=== PATIENT | female | born 1995 | race Two or more races ===

== ENCOUNTER 2016-08-16 12:57 | Emergency (ER) | payer MEDICAID ==
[2016-08-16] MEDS ORDERED: ONDANSETRON 4 MG TAB.RAPDIS PO ONE (13:25)
--- NOTE | 2016-08-16 13:25 | ER Document Report ---
ED General - General Chief Complaint: Possible Overdose Stated Complaint: POSSIBLE OVERDOSE Time Seen by Provider: 08/16/16 13:20 Mode of Arrival: Ambulatory Information source: Patient Notes: 20-year-old female presents with complaints of nausea vomiting chest pain after ingesting Tylenol, Toradol and muscle relaxer. Patient notes she took 3 trials one muscle relaxer and 15 500 mg Tylenol tablets at 4 AM. Patient admits that her tooth hurts and that is why she did this denies any thoughts of wanting to hurt herself, father is in the room denies a history of depression but states that her and her may have had an argument prior to this episode TRAVEL OUTSIDE OF THE [place] IN LAST 30 DAYS: No - HPI Onset: This morning Onset/Duration: Sudden Quality of pain: Achy Severity: Mild Pain Level: 1 Associated symptoms: Nausea, Vomiting Exacerbated by: Denies Relieved by: Denies Similar symptoms previously: No Recently seen / treated by doctor: No - Related Data Allergies/Adverse Reactions: No Known Allergies Allergy (Verified 09/06/14 16:25) Past Medical History - Social History Smoking Status: Never Smoker Cigarette use (# per day): No Chew tobacco use (# tins/day): No Smoking Education Provided: No Frequency of alcohol use: None Drug Abuse: None Family History: Reviewed & Not Pertinent Patient has suicidal ideation: No Patient has homicidal ideation: No Renal/ Medical History: Denies: Hx Peritoneal Dialysis Past Surgical History: Reports: Hx Section - 4 - Immunizations Immunizations up to date: Yes Hx Diphtheria, Pertussis, Tetanus Vaccination: Yes Review of Systems - Review of Systems Notes: REVIEW OF SYSTEMS: CONSTITUTIONAL : Denies fever, chills, or sweats. Denies recent illness. EENT: Denies eye, ear, throat, or mouth pain or symptoms. Denies nasal or sinus congestion or discharge. Denies throat, tongue, or mouth swelling or difficulty swallowing. CARDIOVASCULAR: Chest pain RESPIRATORY: Denies cough, cold, or chest congestion. Denies shortness of breath, difficulty breathing, or wheezing. GASTROINTESTINAL: Nausea GENITOURINARY: Denies difficulty urinating, painful urination, burning, frequency, blood in urine, or discharge. FEMALE GENITOURINARY: Denies vaginal bleeding, heavy or abnormal periods, irregular periods. Denies vaginal discharge or odor. MUSCULOSKELETAL: Denies back or neck pain or stiffness. Denies joint pain or swelling. SKIN: Denies rash, lesions or sores. HEMATOLOGIC : Denies easy bruising or bleeding. LYMPHATIC: Denies swollen, enlarged glands. NEUROLOGICAL: Denies confusion or altered mental status. Denies passing out or loss of consciousness. Denies dizziness or lightheadedness. Denies headache. Denies weakness or paralysis or loss of use of either side. Denies problems with gait or speech. Denies sensory loss, numbness, or tingling. Denies seizures. PSYCHIATRIC: Denies anxiety or stress. Denies depression, suicidal ideation, or homicidal ideation. ALL OTHER SYSTEMS REVIEWED AND NEGATIVE. PHYSICAL EXAMINATION: GENERAL: Well-appearing, well-nourished and in no acute distress. Is actively vomiting HEAD: Atraumatic, normocephalic. EYES: Pupils equal round and reactive to light, extraocular movements intact, conjunctiva are normal. ENT: Nares patent, oropharynx clear without exudates. Moist mucous membranes. NECK: Normal range of motion, supple without lymphadenopathy LUNGS: Breath sounds clear to auscultation bilaterally and equal. No wheezes rales or rhonchi. HEART: Regular rate and rhythm without murmurs ABDOMEN: Soft, nontender, nondistended abdomen. No guarding, no rebound. No masses appreciated. Female : deferred Musculoskeletal: Normal range of motion, no pitting or edema. No cyanosis. NEUROLOGICAL: Cranial nerves grossly intact. Normal speech, normal gait. Normal sensory, motor exams PSYCH: Normal mood, normal affect. SKIN: Warm, Dry, normal turgor, no rashes or lesions noted. Dictation was performed using [employer] voice recognition software Physical Exam - Vital signs Vitals: Temp Pulse Resp BP Pulse Ox 98.0 F 87 24 H 119/103 H 100 08/16/16 13:01 08/16/16 13:01 08/16/16 13:01 08/16/16 13:01 08/16/16 13:01 Course - Re-evaluation Re-evalutation: 08/16/16 13:28 At this point patient has ingested tylenol 9 hours ago, labs pending before clearance 08/16/16 14:28 Patient's Tylenol level is 28, she falls under the nomogram for treatment, therefore I will treat symptomatically at this time 08/16/16 16:00 Patient was evaluated by mental health, they spoke with father and and there is no signs of suicidal ideation appears this was all secondary to pain control intolerance, I will send him home with pain medication and antibiotics for the dental pain no abscess was noted After performing a Medical Screening Examination, I estimate there is LOW risk for any life threatening mental health issues. At this time the patient looks extremely well and has not attempted severe self harm. I have reevaluated this patient multiple times and no significant life threatening changes are noted. The patient and I have discussed the diagnosis and risks, and we agree with discharging home with close follow-up with the understanding that symptoms and presentations can change. We also discussed returning to the Emergency Department immediately if new or worsening symptoms occur. We have discussed the symptoms which are most concerning (hallucinations, thoughts or actions of self harm or harm to others) that necessitate immediate return. - Vital Signs Vital signs: Temp Pulse Resp BP Pulse Ox 98.0 F 87 24 H 113/72 100 08/16/16 13:01 08/16/16 13:01 08/16/16 13:01 08/16/16 15:16 08/16/16 13:01 - Laboratory Result Diagrams: 08/16/16 13:54 08/16/16 13:54 Laboratory results interpreted by me: 08/16/16 08/16/16 08/16/16 13:34 13:54 13:54 MCV 78 L MCH 24.9 L RDW 14.9 H Seg Neutrophils % 79.8 H Monocytes % 2.0 L Carbon Dioxide 21 L Glucose 123 H Total Protein 9.0 H Albumin 5.1 H Urine Protein 30 H Urine Ketones 80 H Ur Leukocyte Esterase SMALL H Urine Ascorbic Acid 40 H Salicylates < 1.0 L Discharge - Discharge Clinical Impression: Pain, dental Overdose by acetaminophen Qualifiers: Encounter type: initial encounter Injury intent: accidental or unintentional Qualified Code(s): T39.1X1A - Poisoning by 4-Aminophenol derivatives, accidental (unintentional), initial encounter Condition: Fair Disposition: HOME, SELF-CARE Instructions: Toothache ([facility]) Additional Instructions: Overdose You have taken more medication than you should have. After your evaluation and care, it is felt that your overdose is not likely to be harmful or of any significant consequences to you and you are being discharged. In the future, you should be careful not to take more medications than what is prescribed for you. Although your overdose does not seem to be of any danger to you at this time, if you develop any unusual or unexpected symptoms after your discharge, you should return to the Emergency Department immediately for re-evaluation. You should followup with a Primary Care Provider within 3-5 days. Prescriptions: Oxycodone HCl [Oxycontin Ir 5 Mg Tablet] 1 - 2 mg PO Q4H PRN #15 tablet PRN Reason: For Pain Penicillin V Potassium [Penicillin Vk 500 mg Tablet] 500 mg PO Q6 #40 tablet Referrals: [facility] [Provider Group] - Follow up in 3-5 days
[2016-08-16] MEDS ORDERED: ONDANSETRON 4 MG TAB.RAPDIS ONE (13:29)
[2016-08-16 14:03] LABS: APPEARANCE,URINE SLIGHTLY-CLOUDY; BILIRUBIN,URINE NEGATIVE (NEGATIVE); GLUCOSE, URINE NEGATIVE (NEGATIVE); KETONES,URINE 80 mg/dL (NEGATIVE); LEUKOCYTE ESTERASE,URINE SMALL (NEGATIVE); NITRITE,URINE NEGATIVE (NEGATIVE); PROTEIN,URINE 30 mg/dL (NEGATIVE); URINE SPECIFIC GRAVITY > 1.060; UROBILINOGEN,URINE NEGATIVE mg/dL (<2.0)
[2016-08-16 14:06] LABS: ABSOLUTE LYMPHOCYTES (AUTO) 1.6 10^3/uL (0.5-4.7); ABSOLUTE MONOCYTES (AUTO) 0.2 10^3/uL (0.1-1.4); ABSOLUTE NEUT (AUTO) 7.2 10^3/uL (1.7-8.2); BASOPHILS % (AUTO) 0.5 % (0-2); EOSINOPHILS % (AUTO) 0.1 % (0-6); HEMATOCRIT 39.2 % (36.0-47.0); HEMOGLOBIN 12.5 g/dL (12.0-15.5); HGB HCT DIFFERENCE -1.7; LYMPHOCYTES % (AUTO) 17.6 % (13-45); MEAN CORPUSCULAR HEMOGLOBIN 24.9 pg (27.0-33.4); MEAN CORPUSCULAR VOLUME 78 fl (80-97); RED BLOOD COUNT 5.04 10^6/uL (3.72-5.28); RED CELL DISTRIBUTION WIDTH 14.9 % (11.5-14.0); SEGMENTED NEUTROPHILS % (AUTO) 79.8 % (42-78)
[2016-08-16] MEDS ORDERED: NORMAL SALINE 1000 ML 1,000 ML IV ONE (14:07)
[2016-08-16 14:15] LABS: URINE BARBITURATES SCREEN NEGATIVE; URINE METHADONE SCREEN NEGATIVE; URINE OPIATES LOW NEGATIVE; URINE PHENCYCLIDINE SCREEN NEGATIVE
[2016-08-16 14:22] LABS: ALANINE AMINOTRANSFERASE 27 U/L (9-52); ALBUMIN 5.1 g/dL (3.5-5.0); ALKALINE PHOSPHATASE 96 U/L (38-126); ANION GAP 18 (5-19); ASPARTATE AMINO TRANSFERASE 21 U/L (14-36); BILIRUBIN,DIRECT 0.3 mg/dL (0.0-0.4); BILIRUBIN,TOTAL 0.6 mg/dL (0.2-1.3); BLOOD UREA NITROGEN 16 mg/dL (7-20); CALCIUM 9.6 mg/dL (8.4-10.2); CARBON DIOXIDE 21 mmol/L (22-30); CHLORIDE 104 mmol/L (98-107); CREATININE RESULT 0.67 mg/dL (0.52-1.25); GLUCOSE 123 mg/dL (75-110); POTASSIUM 4.1 mmol/L (3.6-5.0); SODIUM 142.9 mmol/L (137-145)
[2016-08-16 14:23] LABS: ALCOHOL < 10 mg/dL (NONE DETECTED)
--- NOTE | 2016-08-16 15:50 | ER Document Report ---
ED Psych Disorder / Suicide - General Chief Complaint: Possible Overdose Stated Complaint: POSSIBLE OVERDOSE Time Seen by Provider: 08/16/16 13:20 Mode of Arrival: Ambulatory Information source: Patient, Parent, Relative - TRAVEL OUTSIDE OF THE [place] IN LAST 30 DAYS: No - HPI Patient complains to provider of: Overdose Onset: This morning Suicide Risk Factors: Other - pain Overdose of: Acetominophen Strength: 250MG Amount: unknown Normal mood: Yes Associated symptoms: Normal affect, Normal mood Similar symptoms previously: Yes Recently seen / treated by doctor: Yes Notes: Patient is a 20 year old female who presented to the ED today via father for an intentional OD. Patient reported she has had tooth pain (molar) for awhile now. She stated she tried family remedies of using toothpaste, peroxide, liquor to swish in mouth. She noted she also tried the gum numbing stuff. She reported the only thing that has ever worked for her were shots given in another ED. She acknowledged she was in pain, crying, and took some pills to aid with the pain. She noted she didn't count and took to much. She stated she first took a muscle relaxer which did not work so she then took a Toradol. When the Toradol didn't work she also took Tylenol. She stated the Tylenol was 250MG and she normally would take Ibuprofen 800MG so didn't think anything of taking multiple Tylenol. She was adamant she took the pills to address tooth pain and not to hurt.harm/ kill self. She denied previous SI. She identified she has 4 daughters to live for. She had informed the nurse she needed to get home to relief mother from the children. She stated she was also concerned because she had to work this evening. She denied previous MH hospitalization or outpatient MH services (to include medications). Patient was alert and oriented. Mood was euthymic with congruent affect. She denied SI/HI, as well as history. She did not appear to be responding to internal stimuli AEB fair eye contact, answering questions appropriately when addressed, and carrying on dialogue conversation. Thought processes were organized and linear. Conversational speech was WNL for rate, tone and prosody. Intellectual abilities are estimated to be average. Insight, judgment and impulse control are fair AEB her understanding that medications need to be taken as described in directions or as directed by physician. Patient's father was at bedside. He confirmed she has had tooth pain. He denied patient doing anything in the past to harm/hurt/kill self. He stated he lives close and would be providing transportation for patient today. Patient's father had patient's on the phone. This clinician spoke to . he was more concerned about her current wellbeing as a result of taking to much medication to deal with tooth pain. He stated since they have been together patient has not done anything to harm/hurt/kill self. Diagnosis: 300.9 (F99) Unspecified Mental Disorder Accidental Overdose Tooth Pain Impression/Plan: Recommendation to discharge patient home with father. She does not meet [place] IVC criteria. She denied SI/HI and there was no observed psychosis. Patient was worried about getting home to her 4 daughters so patient' s mother could get to work, as well as patient having to work this evening ( future thinking). Both father and confirmed ongoing tooth pain and issues, as well as denied previous SI. Father stated he would be providing transportation for patient today and he would have control over all medications (O-T-C as well). Provided patient with resource information for [facility] in [place], [place], as well as [facility]. Also provided the outpatient resource list for services. Consulted with Dr. Higginbotham regarding the management and care of patient. ED physician in agreement with recommendations. - Related Data Allergies/Adverse Reactions: No Known Allergies Allergy (Verified 09/06/14 16:25) Past Medical History - General Information source: Patient - Social History Smoking Status: Never Smoker Cigarette use (# per day): No Chew tobacco use (# tins/day): No Frequency of alcohol use: None Drug Abuse: None Family History: Reviewed & Not Pertinent Patient has suicidal ideation: No Patient has homicidal ideation: No Renal/ Medical History: Denies: Hx Peritoneal Dialysis Past Surgical History: Reports: Hx Section - 4 - Immunizations Immunizations up to date: Yes Hx Diphtheria, Pertussis, Tetanus Vaccination: Yes Physical Exam - Vital signs Vitals: Temp Pulse Resp BP Pulse Ox 98.0 F 87 24 H 119/103 H 100 08/16/16 13:01 08/16/16 13:01 08/16/16 13:01 08/16/16 13:01 08/16/16 13:01 Course - Vital Signs Vital signs: Temp Pulse Resp BP Pulse Ox 98.0 F 73 18 116/80 100 08/16/16 16:15 08/16/16 16:15 08/16/16 16:15 08/16/16 16:15 08/16/16 16:15 - Laboratory Result Diagrams: 08/16/16 13:54 08/16/16 13:54 Laboratory results interpreted by me: 08/16/16 08/16/16 08/16/16 13:34 13:54 13:54 MCV 78 L MCH 24.9 L RDW 14.9 H Seg Neutrophils % 79.8 H Monocytes % 2.0 L Carbon Dioxide 21 L Glucose 123 H Total Protein 9.0 H Albumin 5.1 H Urine Protein 30 H Urine Ketones 80 H Ur Leukocyte Esterase SMALL H Urine Ascorbic Acid 40 H Salicylates < 1.0 L Discharge - Discharge Clinical Impression: Pain, dental Overdose by acetaminophen Qualifiers: Encounter type: initial encounter Injury intent: accidental or unintentional Qualified Code(s): T39.1X1A - Poisoning by 4-Aminophenol derivatives, accidental (unintentional), initial encounter Condition: Fair Disposition: HOME, SELF-CARE Instructions: Toothache ([facility]) Additional Instructions: Overdose You have taken more medication than you should have. After your evaluation and care, it is felt that your overdose is not likely to be harmful or of any significant consequences to you and you are being discharged. In the future, you should be careful not to take more medications than what is prescribed for you. Although your overdose does not seem to be of any danger to you at this time, if you develop any unusual or unexpected symptoms after your discharge, you should return to the Emergency Department immediately for re-evaluation. You should followup with a Primary Care Provider within 3-5 days. Prescriptions: Oxycodone HCl [Oxycontin Ir 5 Mg Tablet] 1 - 2 mg PO Q4H PRN #15 tablet PRN Reason: For Pain Penicillin V Potassium [Penicillin Vk 500 mg Tablet] 500 mg PO Q6 #40 tablet Forms: Return to Work Referrals: [facility] [place] [Provider Group] - Follow up in 3-5 days
[2016-08-16 16:16] VITALS: BP 116/80
--- NOTE | 2016-08-16 21:09 | EKG REPORT ---
SEVERITY:- NORMAL ECG - SINUS RHYTHM : Confirmed by: Zane Sharpe MD 16-Aug-2016 21:08:43
== END 2016-08-16 16:18 | disposition home or self-care (01) ==
LOC: ER 12:57
DX: T39.1X1A Poisoning by 4-Aminophenol derivatives, accidental (unintentional), initial encounter (principal); K08.89 Other specified disorders of teeth and supporting structures; F99 Mental disorder, not otherwise specified
CPT/HCPCS: 93005; 99284; 36415; 80307 ×4; 84703; 85025; 80053; 81001; 93010; S0119; J7030

== ENCOUNTER 2016-09-21 15:14 | Emergency (ER) | payer SELFPAY ==
--- NOTE | 2016-09-21 16:05 | ER Document Report ---
ED Medical Screen (RME) - General Chief Complaint: Abdominal Pain Stated Complaint: ABDOMINAL PAIN Time Seen by Provider: 09/21/16 16:03 Mode of Arrival: Ambulatory Information source: Patient Notes: 20-year-old female presents with complaints of abdominal pain left-sided of 3 day duration. Patient denies any fevers or chills. Patient notes she took 2 home tests which were positive, and notes that she has had a tubal ligation in the past I have greeted and performed a rapid initial assessment of this patient. A comprehensive ED assessment and evaluation of the patient, analysis of test results and completion of the medical decision making process will be conducted by additional ED providers. PHYSICAL EXAMINATION: GENERAL: Well-appearing, well-nourished and in no acute distress. HEAD: Atraumatic, normocephalic. EYES: Pupils equal round extraocular movements intact, conjunctiva are normal. ENT: Nares patent NECK: Normal range of motion LUNGS: No respiratory distress Musculoskeletal: Normal range of motion NEUROLOGICAL: Normal speech, normal gait. PSYCH: Normal mood, normal affect. SKIN: Warm, Dry, normal turgor, no rashes or lesions noted. TRAVEL OUTSIDE OF THE [place] IN LAST 30 DAYS: No - Related Data Allergies/Adverse Reactions: No Known Allergies Allergy (Verified 09/21/16 15:21) Past Medical History Renal/ Medical History: Denies: Hx Peritoneal Dialysis Past Surgical History: Reports: Hx Section - 4 - Immunizations Immunizations up to date: Yes Hx Diphtheria, Pertussis, Tetanus Vaccination: Yes Physical Exam - Vital signs Vitals: Temp Pulse Resp BP 98.4 F 81 18 115/72 09/21/16 15:23 09/21/16 15:23 09/21/16 15:23 09/21/16 15:23 Course - Vital Signs Vital signs: Temp Pulse Resp BP Pulse Ox 98.4 F 81 18 115/72 09/21/16 15:23 09/21/16 15:23 09/21/16 15:23 09/21/16 15:23
[2016-09-21 16:44] LABS: ABSOLUTE EOSINOPHILS # (AUTO) 0.4 10^3/uL (0.0-0.6); ABSOLUTE LYMPHOCYTES (AUTO) 2.5 10^3/uL (0.5-4.7); ABSOLUTE MONOCYTES (AUTO) 0.6 10^3/uL (0.1-1.4); ABSOLUTE NEUT (AUTO) 4.5 10^3/uL (1.7-8.2); BASOPHILS % (AUTO) 0.5 % (0-2); EOSINOPHILS % (AUTO) 4.6 % (0-6); HEMATOCRIT 36.4 % (36.0-47.0); HEMOGLOBIN 11.7 g/dL (12.0-15.5); HGB HCT DIFFERENCE -1.3; LYMPHOCYTES % (AUTO) 31.4 % (13-45); MEAN CORPUSCULAR HEMOGLOBIN 25.3 pg (27.0-33.4); MEAN CORPUSCULAR HGB CONC 32.3 g/dL (32.0-36.0); MEAN CORPUSCULAR VOLUME 78 fl (80-97); MONOCYTES % (AUTO) 7.1 % (3-13); RED BLOOD COUNT 4.64 10^6/uL (3.72-5.28); RED CELL DISTRIBUTION WIDTH 14.8 % (11.5-14.0); SEGMENTED NEUTROPHILS % (AUTO) 56.4 % (42-78); WHITE BLOOD COUNT 7.9 10^3/uL (4.0-10.5)
[2016-09-21 16:51] LABS: AMORPHOUS SEDIMENT,URINE TRACE /HPF; APPEARANCE,URINE CLOUDY; BILIRUBIN,URINE NEGATIVE (NEGATIVE); GLUCOSE, URINE NEGATIVE (NEGATIVE); KETONES,URINE NEGATIVE (NEGATIVE); LEUKOCYTE ESTERASE,URINE NEGATIVE (NEGATIVE); NITRITE,URINE POSITIVE (NEGATIVE); PROTEIN,URINE NEGATIVE (NEGATIVE); URINE SPECIFIC GRAVITY 1.025
[2016-09-21 17:07] LABS: ALANINE AMINOTRANSFERASE 27 U/L (9-52); ALBUMIN 4.3 g/dL (3.5-5.0); ALKALINE PHOSPHATASE 82 U/L (38-126); ANION GAP 9 (5-19); ASPARTATE AMINO TRANSFERASE 18 U/L (14-36); BILIRUBIN,DIRECT 0.3 mg/dL (0.0-0.4); BILIRUBIN,TOTAL 0.4 mg/dL (0.2-1.3); BLOOD UREA NITROGEN 12 mg/dL (7-20); CALCIUM 9.2 mg/dL (8.4-10.2); CARBON DIOXIDE 28 mmol/L (22-30); CHLORIDE 104 mmol/L (98-107); CREATININE RESULT 0.72 mg/dL (0.52-1.25); GLUCOSE 88 mg/dL (75-110); POTASSIUM 4.1 mmol/L (3.6-5.0); SODIUM 141.1 mmol/L (137-145); TOTAL PROTEIN 7.6 g/dL (6.3-8.2)
[2016-09-21] MEDS ORDERED: CEFTRIAXONE 1 GM/D5W RTU 50 ML IV ONE (17:57)
[2016-09-21] MEDS ORDERED: KETOROLAC TROMETHAMINE INJ/PF 30 MG/1 ML SDV IV ONE (17:57)
[2016-09-21] MEDS ORDERED: ONDANSETRON HCL INJ/PF 4 MG/2 ML SDV IV ONE (17:57)
--- NOTE | 2016-09-21 18:08 | ER Document Report ---
ED GI/ - General Mode of Arrival: Ambulatory Information source: Patient TRAVEL OUTSIDE OF THE [place] IN LAST 30 DAYS: No <KASSANDRA HINES - Last Filed: 09/21/16 20:34> <MANSOOR LOCO - Last Filed: 09/21/16 22:26> - General Chief Complaint: Abdominal Pain Stated Complaint: ABDOMINAL PAIN Time Seen by Provider: 09/21/16 16:03 Notes: Patient is a 20 year old female that presents to the emergency department today with complaints of abdominal pain. Patient states she has abdominal pain "close to her scar". Patient has had 4 C-sections in the past. Patient states she has had UTIs in the past but this does not feel similar to her previous UTIs. Patient denies dysuria, vaginal discharge, or vaginal bleeding. ( KASSANDRA HINES) - Related Data Allergies/Adverse Reactions: No Known Allergies Allergy (Verified 09/21/16 15:21) Past Medical History - General Information source: Patient - Social History Smoking Status: Never Smoker Cigarette use (# per day): No Frequency of alcohol use: None Drug Abuse: None Family History: Reviewed & Not Pertinent Patient has suicidal ideation: No Patient has homicidal ideation: No Past Surgical History: Reports: Hx Section - x4 - Immunizations Immunizations up to date: Yes Hx Diphtheria, Pertussis, Tetanus Vaccination: Yes <KASSANDRA HINES - Last Filed: 09/21/16 20:34> Review of Systems - Review of Systems Constitutional: denies: Fever EENT: No symptoms reported Cardiovascular: No symptoms reported Respiratory: No symptoms reported Gastrointestinal: See HPI, Abdominal pain, Nausea Genitourinary: See HPI, Other - Hx of UTIs. denies: Dysuria Female Genitourinary: No symptoms reported Musculoskeletal: No symptoms reported Skin: No symptoms reported Hematologic/Lymphatic: No symptoms reported Neurological/Psychological: No symptoms reported -: Yes All other systems reviewed and negative <KASSANDRA HINES - Last Filed: 09/21/16 20:34> Physical Exam <KASSANDRA HINES - Last Filed: 09/21/16 20:34> <MANSOOR LOCO - Last Filed: 09/21/16 22:26> - Vital signs Vitals: Temp Pulse BP Pulse Ox 98.4 F 78 115/72 97 08/15/17 15:22 09/21/16 15:22 09/21/16 15:22 09/21/16 15:22 - Notes Notes: Physical Exam: General: Alert, appears well. HEENT: Normocephalic. Atraumatic. PERRL. Extraocular movements intact. Oropharynx clear. Neck: Supple. Non-tender. Respiratory: No respiratory distress. Clear and equal breath sounds bilaterally. Cardiovascular: Regular rate and rhythm. Abdominal: Suprapubic tenderness with palpation. No distension. Normal Bowel Sounds. Back: Bilateral CVA tenderness with percussion. No deformity or step off. Extremities: Moves all four extremities. Upper extremities: Normal inspection. Normal ROM. Lower extremities: Normal inspection. No edema. Normal ROM. Neurological: Normal cognition. AAOx4. Normal speech. Psychological: Normal affect. Normal Mood. Skin: Warm. Dry. Normal color. (KASSANDRA HINES) Course - Laboratory Result Diagrams: 09/21/16 16:25 09/21/16 16:25 <KASSANDRA HINES - Last Filed: 09/21/16 20:34> - Laboratory Result Diagrams: 09/21/16 16:25 09/21/16 16:25 <MANSOOR LOCO - Last Filed: 09/21/16 22:26> - Re-evaluation Re-evalutation: 09/21/16 Patient presents with suprapubic discomfort and some CVA tenderness. Patient is not . Urine is consistent with urinary tract infection. Patient symptoms have been controlled here with Toradol. Patient has been given a dose of Rocephin. Urine culture has been sent. Patient will be discharged home with Keflex. Stable for discharge. Return for any worsening or concerning symptoms. (MANSOOR LOCO) - Vital Signs Vital signs: Temp Pulse Resp BP Pulse Ox 97.9 F 81 16 108/66 96 09/21/16 19:13 09/21/16 19:13 09/21/16 19:13 09/21/16 19:13 09/21/16 19:13 - Laboratory Laboratory results interpreted by me: 09/21/16 09/21/16 16:25 16:25 Hgb 11.7 L MCV 78 L MCH 25.3 L RDW 14.8 H Urine Nitrite POSITIVE H Urine Urobilinogen 4.0 H Discharge <KASSANDRA HINES - Last Filed: 09/21/16 20:34> <MANSOOR LOCO - Last Filed: 09/21/16 22:26> - Discharge Clinical Impression: UTI (urinary tract infection) Qualifiers: Urinary tract infection type: site unspecified Hematuria presence: without hematuria Qualified Code(s): N39.0 - Urinary tract infection, site not specified Condition: Stable Disposition: HOME, SELF-CARE Instructions: Urinary Tract Infection ([facility]), Pyelonephritis ([facility]) Prescriptions: Cephalexin Monohydrate [Keflex 500 mg Capsule] 500 mg PO TID #30 capsule Scribe Attestation: 09/21/16 22:26 I personally performed the services described in the documentation, reviewed and edited the documentation which was dictated to the scribe in my presence, and it accurately records my words and actions. (MANSOOR LOCO) Scribe Documentation - Scribe Written by Scribe:: Daljit Monae, 09/21/2016 1808 acting as scribe for :: Layne <KASSANDRA HINES - Last Filed: 09/21/16 20:34>
[2016-09-21 19:18] VITALS: BP 108/66
== END 2016-09-21 19:24 | disposition home or self-care (01) ==
LOC: ER 15:14
DX: N39.0 Urinary tract infection, site not specified (principal); R10.9 Unspecified abdominal pain; R11.0 Nausea; Z87.440 Personal history of urinary (tract) infections
CPT/HCPCS: 99284; 96375; 96365; 36415; 87086; 84702; 85025; 87088; 80053; 81001; 87186; J1885; J2405; J0696

== ENCOUNTER 2017-01-06 14:05 | Emergency (ER) | payer SELFPAY ==
--- NOTE | 2017-01-06 14:52 | ER Document Report ---
ED Medical Screen (RME) - General Chief Complaint: Toothache Stated Complaint: MOUTH PAIN Time Seen by Provider: 01/06/17 14:46 Mode of Arrival: Ambulatory Information source: Patient TRAVEL OUTSIDE OF THE [place] IN LAST 30 DAYS: No - HPI Onset: Yesterday Onset/Duration: Gradual Quality of pain: Achy, Dull Severity: Moderate Associated Symptoms: Fever - LAST PM, Nausea. denies: Chills, Drooling Exacerbated by: Denies Relieved by: Denies Similar symptoms previously: Yes - CHRONIC DENTAL PROBLEMS Recently seen / treated by doctor: No - Related Data Allergies/Adverse Reactions: No Known Allergies Allergy (Verified 01/06/17 14:07) Past Medical History - General Information source: Patient - Social History Cigarette use (# per day): No Chew tobacco use (# tins/day): No Frequency of alcohol use: None Drug Abuse: None Lives with: Family Renal/ Medical History: Denies: Hx Peritoneal Dialysis Past Surgical History: Reports: Hx Section - x4 - Immunizations Immunizations up to date: Yes Hx Diphtheria, Pertussis, Tetanus Vaccination: Yes Review of Systems - Review of Systems Constitutional: See HPI, Fever EENT: See HPI Cardiovascular: No symptoms reported Respiratory: No symptoms reported Gastrointestinal: See HPI Genitourinary: No symptoms reported Musculoskeletal: No symptoms reported Skin: No symptoms reported Neurological/Psychological: No symptoms reported Physical Exam - Vital signs Vitals: Temp Pulse Resp BP Pulse Ox 98.7 F 84 20 128/78 H 100 01/06/17 14:10 01/06/17 14:10 01/06/17 14:10 01/06/17 14:10 01/06/17 14:10 Interpretation: Normal. No: Tachycardic, Tachypneic, Febrile - General General appearance: Appears well, Alert In distress: None - HEENT Head: Normocephalic Eyes: Normal Conjunctiva: Normal Ears: Normal External canal: Normal Tympanic membrane: Normal Nasal: Normal Mouth/Lips: Caries, Dental fracture Mucous membranes: Normal Pharynx: Normal Neck: Normal - Respiratory Respiratory status: No respiratory distress - Cardiovascular Rhythm: Regular - Extremities General upper extremity: Normal inspection General lower extremity: Normal inspection - Neurological Neuro grossly intact: Yes Cognition: Normal Orientation: AAOx4 - Psychological Associated symptoms: Normal affect, Normal mood - Skin Skin Temperature: Warm Skin Moisture: Dry Skin Color: Normal Skin Turgor: Elastic Course - Vital Signs Vital signs: Temp Pulse Resp BP Pulse Ox 98.7 F 84 20 128/78 H 100 01/06/17 14:10 01/06/17 14:10 01/06/17 14:10 01/06/17 14:10 01/06/17 14:10 Doctor's Discharge - Discharge Clinical Impression: Dental infection Condition: Stable Disposition: HOME, SELF-CARE Instructions: [facility], Clindamycin ([facility]), Oral Narcotic Medication ([facility]), Toothache ([facility]) Additional Instructions: REST, DRINK PLENTY OF FLUIDS. MEDS DIRECTED. FOLLOW UP WITH DENTAL CLINIC OF YOUR CHOICE FOR TREATMENT OF THIS ON-GOING, RECURRENT PROBLEM.. Prescriptions: Hydrocodone/Acetaminophen [Desmet 5-325 mg Tablet] 1 tab PO Q4HP PRN #14 tablet PRN Reason: For Pain Clindamycin HCl [Cleocin 150 mg Capsule] 300 mg PO Q6 #56 capsule Forms: Return to Work Referrals: [facility] [Outside] - Follow up as needed
[2017-01-06 16:30] VITALS: BP 108/73
== END 2017-01-06 15:22 | disposition home or self-care (01) ==
LOC: ER 14:05
DX: K04.7 Periapical abscess without sinus (principal); K08.89 Other specified disorders of teeth and supporting structures
CPT/HCPCS: 99282